=== PATIENT | female | born 1965 | race African-American/Black ===

== ENCOUNTER 2016-11-02 13:39 | Emergency (ER) | payer BC ==
[~2016-11-02 13:39] MED LIST: ?ANTIBIOTIC; ACIDOPHILUS1 TA1 PO; ALLERGY SHOT; ASPIRIN81 M2 PO; BUMETANIDE1 MG; BUMEX1 MG PO; CLARITHROMYCIN500 M1 PO; FLAGYL PO; GABAPENTIN300 M2 PO; HYDROCODON-ACE1 EAC5 PO; KLOR-CON PO; LIPITOR20 MG PO; LORTAB 10/500 T1 TAB PO; MULTIVITAMIN1 UDCAP PO; NAPROSYN500 MG PO; OMEPRAZOLE40 M1 PO; PRAVASTATIN SOD40 MG PO; PREVACID PO; VITAMIN D-32000 UNIT PO; VOLTAREN75 MG PO
[2016-11-02] MEDS ORDERED: CLEOCIN (13:42)
[2016-11-02] MEDS ORDERED: HYDROCODON-ACE1 EAC9 (13:43)
== END 2016-11-02 14:10 | disposition home or self-care (01) ==
LOC: SED 13:39
DX: J32.9 Chronic sinusitis, unspecified (principal); J02.9 Acute pharyngitis, unspecified; Z98.51 Tubal ligation status; Z88.0 Allergy status to penicillin; Z88.2 Allergy status to sulfonamides; Z91.040 Latex allergy status
CPT/HCPCS: 99283